=== PATIENT | male | born 1975 ===

== ENCOUNTER 2023-03-13 21:52 | Emergency (ER) | payer SELFPAY ==
[2023-03-13] MEDS ORDERED: LORazepam 2 MG/ML SDV IVPUSH ONE (21:54)
[2023-03-13] MEDS ORDERED: Sodium Chloride 0.9% 1,000 ML IV ONE (21:55)
[2023-03-13] MEDS ORDERED: Ondansetron 4 MG/2 ML SDV IVPUSH ONE (21:56)
[2023-03-13] MEDS ORDERED: Sodium Chloride 0.9% 10 ML Syringe FLUSH PRN (21:57)
[2023-03-13] MEDS ORDERED: LORazepam 2 MG/ML SDV ONE (21:59)
[2023-03-13] MEDS ORDERED: EPINEPHrine 1:10,000 1 MG/10 ML Syringe IVPUSH ONE (22:54)
[2023-03-13 22:56] LABS: BASOPHILS ABSOLUTE AUTO 0.06 K/uL (0.00-0.20); BASOPHILS PERCENT AUTO 0.3 % (0.0-2.0); EOSINOPHILS ABSOLUTE AUTO 0.34 K/uL (0.00-0.50); EOSINOPHILS PERCENT AUTO 1.7 % (0.0-5.0); HEMATOCRIT 50.4 % (39.0-49.0); LYMPHOCYTES ABSOLUTE AUTO 7.93 K/uL (0.50-3.50); LYMPHOCYTES PERCENT AUTO 39.8 % (10.0-50.0); MEAN CORPUSCULAR HEMOGLOBIN 30.7 pg (28.2-33.3); MEAN CORPUSCULAR HGB CONC 36.7 g/dL (31.7-36.0); MEAN CORPUSCULAR VOLUME 83.6 fL (84.0-98.0); MONOCYTES ABSOLUTE AUTO 1.22 K/uL (0.00-1.00); MONOCYTES PERCENT AUTO 6.1 % (2.0-14.0); NEUTROPHILS ABSOLUTE AUTO 10.36 K/uL (1.40-7.00); NEUTROPHILS PERCENT AUTO 52.1 % (45.0-80.0); PLATELET COUNT,PLT 276 K/uL (150-350); RED BLOOD CELL COUNT 6.03 M/uL (4.33-5.41); WHITE BLOOD CELL COUNT,WBC 19.9 K/uL (4.0-10.2)
[2023-03-13 22:59] LABS: HEMOGLOBIN 18.5 g/dL (13.1-16.8)
[2023-03-13 23:06] LABS: ALANINE AMINOTRANSFERASE,ALT 26 U/L (12-78); ALBUMIN 4.1 g/dL (3.4-5.0); ALKALINE PHOSPHATASE 122 IU/L (46-116); ANION GAP 23.4 meq/L (7-15); ASPARTATE AMNIOTRANSFERASE,AST 21 U/L (15-37); BILIRUBIN TOTAL 1.5 mg/dL (0.2-1.0); BLOOD UREA NITROGEN,BUN 17 mg/dL (7-18); CALCIUM 8.6 mg/dL (8.5-10.1); CARBON DIOXIDE,CO2 17.6 mmol/L (21.0-32.0); CHLORIDE,CL 103 mmol/L (98-107); CREATININE 1.35 mg/dL (0.51-1.17); ESTIMATED GFR 64 mL/min (>=60); ETHANOL BLOOD MEDICAL 0.001 g/dL (0.000-0.080); GLUCOSE RANDOM 422 mg/dL (70-99); MAGNESIUM 2.1 mg/dL (1.8-2.4); PRO B-TYPE NATRIUR PEPT,BNPPRO 272 pg/mL (0-125); PROTEIN TOTAL,TP 7.7 g/dL (6.4-8.2); SODIUM,NA 141 mmol/L (136-145)
[2023-03-13] MEDS ORDERED: fentaNYL 50 MCG/ML SDV ONE (23:08)
[2023-03-13] MEDS ORDERED: Midazolam 1 MG/ML 2 ML SDV IVPUSH ONE (23:12)
[2023-03-13 23:15] LABS: APPEARANCE,URINE CLEAR; BILIRUBIN,URINE NEGATIVE (NEGATIVE); COLOR,URINE YELLOW; GLUCOSE,URINE 500 mg/dL (NEGATIVE); KETONES,URINE TRACE mg/dL (NEGATIVE); LEUKOCYTE ESTERASE,URINE NEGATIVE (NEGATIVE); NITRITE,URINE NEGATIVE (NEGATIVE); OCCULT BLOOD,URINE SMALL (NEGATIVE); PROTEIN,URINE >=300 mg/dL (NEGATIVE); UROBILINOGEN,URINE 0.2 E.U./dL (0.2-1.0)
[2023-03-13 23:31] LABS: AMORPHOUS SEDIMENT,URINE FEW /HPF (0/HPF); BACTERIA,URINE FEW /HPF (NONE TO FEW); MUCUS,URINE FEW /LPF (NEGATIVE); WBC,URINE 0-5 /HPF
[2023-03-13 23:35] LABS: AMPHETAMINES SCREEN, URINE NEGATIVE (NEGATIVE); BARBITURATE SCREEN,URINE NEGATIVE (NEGATIVE); BENZODIAZEPINES SCREEN,URINE NEGATIVE (NEGATIVE); COCAINE METABOLITES,URINE NEGATIVE (NEGATIVE); EDDP,URINE SCREEN NEGATIVE (NEGATIVE); METHAMPHETAMINES SCREEN, URINE NEGATIVE (NEGATIVE); TCA SCREEN,URINE NEGATIVE (NEGATIVE); THC SCREEN,URINE 50 NG/ML NEGATIVE (NEGATIVE)
[2023-03-13 23:36] LABS: BUPRENORPHINE SCREEN,URINE NEGATIVE (NEGATIVE); OXYCODONE SCREEN,URINE NEGATIVE (NEGATIVE)
== END 2023-03-13 23:50 ==
LOC: LL.ED 21:52
DX: R40.4 Transient alteration of awareness (principal)
CPT/HCPCS: 31500; 36415; 51702; 70450; 71045; 80053; 80305; 80307; 81001; 83735; 83880; 84484; 85025; 85379; 92950; 93005; 93010; 96374; 99284; 99285; J2060; J7030